=== PATIENT | male | born 1945 | race Native Hawaiian/Other Pacific Islander ===

== ENCOUNTER 2020-03-13 10:36 | Outpatient (CLI) | payer OTHER ==
[~2020-03-13 10:36] MED LIST: ARICEPT ODT10 MG PO; ASPIRIN LOW STR81 MG PO; GRALISE600 MG PO; LAMICTAL ODT200 MG PO; MELATONIN3 MG PO; SERT50TA PO
[2020-03-13 11:10] LABS: PLATELET COUNT 190 K/uL (142-355)
[2020-03-13 11:42] LABS: POTASSIUM 4.5 mmol/L (3.6-5.2)
== END 2020-03-13 21:50 | disposition home or self-care (01) ==
LOC: LAB 10:36
PROVIDERS: ATTEND Nurse Practitioner Family
DX: F41.8 Other specified anxiety disorders (principal); F31.89 Other bipolar disorder; Z12.5 Encounter for screening for malignant neoplasm of prostate; E78.49 Other hyperlipidemia; G20 Parkinson's disease
CPT/HCPCS: 80053; 80061; 84153; 84436; 84443; 85027